=== PATIENT | female | born 1975 | race Caucasian/White ===

== ENCOUNTER 2017-01-03 16:12 | Emergency (ER) | payer MEDICARE, OTHER ==
[2017-01-03] MEDS ORDERED: Ondansetron ODT 4 MG TAB ONE (16:18)
[2017-01-03] MEDS ORDERED: Promethazine HCl 25 MG/ML VIAL ONE (16:31)
[2017-01-03] MEDS ORDERED: Sodium Chloride 0.9% 1,000 ML ONE ×2 (16:31→17:41)
[2017-01-03 17:09] LABS: #Basophils 0.1 thou/uL (0.0-0.2); #Eosinphils 0.2 thou/uL (0.0-0.7); #Lymphocytes 5.8 thou/uL (1.20-3.40); #Monocytes 0.2 thou/uL (0.11-0.59); #Neutrophils 8.3 thou/uL (1.40-6.50); %Basophils 0.7 % (0.0-1.0); %Eosinophils 1.2 % (0.0-10.0); %Lymphocytes 39.7 % (21.0-51.0); %Monocytes 1.3 % (0.0-10.0); Hematocrit 48.3 % (36.0-47.0); Mean Platelet Volume 6.1 fL (7.4-10.4); Red Blood Cell (RBC) Count 5.56 mill/uL (4.20-5.40); White Blood Cell (WBC) Count 14.5 thou/uL (4.8-10.8)
[2017-01-03 17:40] LABS: ALT (SGPT) 37 U/L (0-55); AST (SGOT) 28 U/L (5-34); Alkaline Phosphatase 210 U/L (40-150); Anion Gap 22 mmol/L (10-20); BUN (Urea Nitrogen) 14 mg/dL (7.0-18.7); Bilirubin, Total 0.3 mg/dL (0.2-1.2); Calc. Creatinine Clearance 0 mL/min (70-130); Calcium 9.8 mg/dL (7.8-10.44); Carbon Dioxide 15 mmol/L (22-29); Chloride 107 mmol/L (98-107); Estimated GFR-MDRD 79; Globulin 4.3 g/dL (2.4-3.5); Lipase 46 U/L (8-78); Protein, Total 8.6 g/dL (6.0-8.3)
[2017-01-03] MEDS ORDERED: Pantoprazole 40 MG VIAL ONE (17:41)
[2017-01-03] MEDS ORDERED: Ondansetron HCl/PF 4 MG/2 ML Vial ONE (17:44)
[2017-01-03 18:39] LABS: Bilirubin Negative (Negative); Blood, Urine Negative (Negative); Glucose, Urine (Dipstick) Negative (Negative); Ketone, Urine Negative (Negative); Nitrite Negative (Negative); Protein, Urine (Dipstick) Negative (Neg-Trace); Urobilinogen 0.2 mg/dL (0.2-1.0)
== END 2017-01-03 19:30 | disposition home or self-care (01) ==
LOC: NAV ERS 16:12
DX: K29.70 Gastritis, unspecified, without bleeding (principal); F17.210 Nicotine dependence, cigarettes, uncomplicated; F31.9 Bipolar disorder, unspecified; F41.9 Anxiety disorder, unspecified
CPT/HCPCS: 80053; 81003; 81025; 83690; 85025; 96361; 96374; 96375; C9113; J2405; J2550; J7050; Q0162

== ENCOUNTER 2017-06-16 13:07 | Emergency (ER) | payer MEDICARE, OTHER ==
[2017-06-16] MEDS ORDERED: Acetaminophen/Codeine 30-300mg Tablet ONE (14:45)
== END 2017-06-16 14:50 | disposition home or self-care (01) ==
LOC: NAV ERS 13:07
DX: M77.11 Lateral epicondylitis, right elbow (principal); F41.9 Anxiety disorder, unspecified; F31.9 Bipolar disorder, unspecified; F43.10 Post-traumatic stress disorder, unspecified; Z87.891 Personal history of nicotine dependence
CPT/HCPCS: 99283